=== PATIENT | female | born 1965 | race Caucasian/White ===

== ENCOUNTER → 2017-09-08 15:00 | Outpatient (CLI) | payer OTHER, SELFPAY ==
[2017-09-16 11:21] LABS: HPV APTIMA, High Risk Positive (Negative)
[2017-09-16 11:33] LABS: HPV Reflexed? YES, CHARGE PATIENT
== END ==
PROVIDERS: Visit Provider Obstetrics & Gynecology
DX: Z12.4 Encounter for screening for malignant neoplasm of cervix (principal)
CPT/HCPCS: 87624; 88175; G0145

== ENCOUNTER → 2017-09-28 18:36 | Outpatient (CLI) | payer OTHER, SELFPAY ==
--- NOTE | 2017-09-28 | IMM_PTH ---
PATIENT: KENDALL SMART LOC: [facility] U#:[id number] AGE/SX: 60/F ROOM: RE09/28/[address]: Dr. Asaf Le MD : 1965 BED: DIS: SPEC #: [id number] RECD: 09/30/17 10:37 STATUS: GUILLERMO HEMA #: [id number] ALY: 09/28/17 00:[address]: Asaf Le DEPT: IMMUNOHISTOCHEMISTRY RECD BY: Shayy Newby Tissues: A - Endocervical B - Uterine cervix, NOS Procedures: p16 (initial) KI-67 (add) PHYSICIAN & INSTITUTION [place] [id number] SPECIMEN INFORMATION: Tissue Source: A ? ECC, B ? Cervical biopsy, four quad Clinical Info: HGSIL Specimen Number: [id number] A & B CPT code: 04806 x2, 19384 x2 METHODOLOGY: Deparaffinized sections of prefer/formalin-fixed tissue or PAP/DQ stained slides are incubated with monoclonal/polyclonal antibodies/oligonucleotide probes. Localization is made via biotin free immunoperoxidase method. Appropriate controls are performed and reacted as expected. Results on target cell population are indicated in the following table: RESULTS: ANTIBODY / CLONE RESULT Block A P16 (E6H4) positive, block-like Ki-67 (30-9) positive, high Block B P16 (E6H4) positive, block-like Ki-67 (30-9) positive, high These tests were developed and their performance characteristics determined by [facility]. They may not have been cleared or approved by the U.S. Food and Drug Administration. The FDA has determined that such clearance or approval is not necessary. INTERPRETATION: A. ECC: Severe squamous dysplasia, COLBY III (HGSIL). B. Cervical, four-quad biopsy: Mild, moderate and severe squamous dysplasia (COLBY I-III). AM:gilberto 09/30/17
--- NOTE | 2017-09-28 14:45 | ECC_PTH ---
PATIENT: KENDALL SMART LOC: [facility] U#:[id number] AGE/SX: 60/F ROOM: RE09/28/[address]: Dr. Asaf Le MD : 1965 BED: DIS: SPEC #: [id number] RECD: 09/28/17 18:21 STATUS: GUILLERMO HEMA #: [id number] ALY: 09/28/17 14:[address]: Asaf Le DEPT: SURGICAL PATHOLOGY RECD BY: Preet Aguilera Tissues: A - Endocervical B - Endocervical Procedures: Surgery Specimen Level IV HEADER OPERATION: Colposcopy PRE-OP DIAGNOSIS: HGSIL N87.0 TISSUE SUBMITTED: A. ECC, B. Cervical biopsy four-quad MICROSCOPIC DIAGNOSIS A. Endocervix, curettings: Detached fragments of squamous mucosa with severe dysplasia, COLBY III. Strips of benign superficial endocervix and mucous. B. Cervix, four-quad biopsy: Mild, moderate and severe squamous dysplasia, COLBY I-III (HGSIL). AM:gilberto 09/30/17 COMMENT A & B. Results from immunohistochemistry ([id number]) for surrogate HPV marker (p16) will be reported separately. MICROSCOPIC DESCRIPTION Slides are reviewed. GROSS DESCRIPTION A - Received in fixative is one container labeled with the patient's name and designated ECC. The specimen consists of multiple fragments of hemorrhagic mucoid tissue that in aggregate measure 1 x 1 x 0.2 cm. The specimen is totally submitted in one cassette. B - Received in fixative is one container labeled with the patient's name and designated four-quadrant cervical biopsy. The specimen consists of multiple irregular fragments of light max soft tissue that in aggregate measure 1.5 x 0.5 x 0.1 cm. The specimen is totally submitted in one cassette. / SJ:gilberto 09/29/17 TC:0 CPT: 83475 x2
== END ==
PROVIDERS: Visit Provider Obstetrics & Gynecology
DX: N87.0 Mild cervical dysplasia (principal)
CPT/HCPCS: 88305; 88341; 88342

== ENCOUNTER 2018-08-02 08:46 | Day surgery (SDC) | payer OTHER, SELFPAY ==
--- NOTE | 2017-10-18 14:04 | PCM.HP.BLA ---
History and Physical Date of Admission: 10/19/17 Surgical History and Physical Sally Magana, a 52 year old female 5 0 1 0 5, presents for LEEP on 10/19/17. -- Severe Cervical Dysplasia -- Colposcopy Procedure for recent abnormal pap screening with HGSIL showed COLBY III. 52 y.o. G 5 P 5 smoker of 1/2 PPD (ATQ) with history of Irregular Menses and LMP of 09-15-17 lasting 4 days. Answered questions and consents signed. 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 MEDICATIONS HISTORY: ALLERGIES: No Known Allergies Infections - Chicken pox Illnesses - no serious past illnesses Accidents - None Hospitalizations - see surgery Review of Systems: GENERAL - Denies fever, or chills SKIN - Denies skin changes EYES - Denies visual changes EARS - Denies difficulty hearing NOSE - Denies nasal congestion or bleeding MOUTH - Denies sore throat or difficulty swallowing NECK - Denies pain or swelling RESPIRATORY - Denies shortness of breath or wheezing CARDIOVASCULAR - Denies palpitations or chest pain GASTROINTESTINAL - Denies nausea, vomiting, diarrhea, constipation GENITOURINARY - Denies dysuria, frequency of urination, incontinence of urine MUSCULOSKELETAL - Denies joint or muscle pain NEUROLOGICAL - Denies localized numbness or weakness PSYCHIATRIC - Denies depression or anxiety ENDOCRINE - Denies heat or cold intolerance, weight loss or gain HEMATO-IMMUNOLOGIC - Denies excesive bleeding with cuts SOCIAL HISTORY: Alcohol Use - RARELY Smoking - 1/2 pack/day--advised to quit Diet - no special diet Lifestyle - moderate stress lifestyle and Exercise - active work Seat Belt Use - always 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 cholecystectomy, 2008 2. 2010 (L) Wrist Surgery PHYSICAL EXAM BP- 130/74 Sitting, Right arm, regular cuff Weight- 182.91320 lbs Height- 64 inch BMI:31.31 CONSTITUTIONAL - NAD, well nourished, and well developed SKIN - No rash, lesions, or ulcers HEENT - Normocephalic, PERRLA, EOMI NECK - No nodes, no nuchal rigidity and thyroid normal size and texture LYMPH NODES - Palpation of lymph nodes in neck and groins within normal limits LUNGS - CTA x2 without wheezes, crackles or rales CARDIAC - Regular rate and rhythm without rubs, murmurs, or gallops BREAST - No dominant masses, no tenderness, no axillary adenopathy, no nipple discharge, no skin changes ABDOMEN - Without hepatosplenomegaly, distention, masses, rebound, or guarding; normal bowel sounds; no hernias EXTREMITIES - No edema or calf tenderness NEUROLOGICAL - Cranial nerves II-XII grossly intact PSYCHIATRIC - A and O to time, place, person, mood and affect External Genitial Vagina - non-tender without lesions Urethra/Urethral Meatus - non-tender Bladder - non-tender Vagina - vaginal davila are pink and moist without loss of rugae and no evidence of atropy Cervix - without cervical motion tenderness and has normal size and features without evident lesions Uterus - 5-6 cm in size, mobile and nontender Adnexa - clear without massess or tenderness ASSESSMENT/PLAN: Severe Cervical Dysplasia (COLBY III). Plan LEEP. Discussed RBAs and all questions answered.
--- NOTE | 2017-10-18 14:07 | HP.PCM_ITS ---
History and Physical Date of Admission: 10/19/17 Surgical History and Physical Sally Magana, a 52 year old female 5 0 1 0 5, presents for LEEP on . -- Severe Cervical Dysplasia -- Colposcopy Procedure for recent abnormal pap screening with HGSIL showed COLBY III. 52 y.o. G 5 P 5 smoker of 1/2 PPD (ATQ) with history of Irregular Menses and LMP of 09-15-17 lasting 4 days. Answered questions and consents signed. 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 MEDICATIONS HISTORY: ALLERGIES: No Known Allergies Infections - Chicken pox Illnesses - no serious past illnesses Accidents - None Hospitalizations - see surgery Review of Systems: GENERAL - Denies fever, or chills SKIN - Denies skin changes EYES - Denies visual changes EARS - Denies difficulty hearing NOSE - Denies nasal congestion or bleeding MOUTH - Denies sore throat or difficulty swallowing NECK - Denies pain or swelling RESPIRATORY - Denies shortness of breath or wheezing CARDIOVASCULAR - Denies palpitations or chest pain GASTROINTESTINAL - Denies nausea, vomiting, diarrhea, constipation GENITOURINARY - Denies dysuria, frequency of urination, incontinence of urine MUSCULOSKELETAL - Denies joint or muscle pain NEUROLOGICAL - Denies localized numbness or weakness PSYCHIATRIC - Denies depression or anxiety ENDOCRINE - Denies heat or cold intolerance, weight loss or gain HEMATO-IMMUNOLOGIC - Denies excesive bleeding with cuts SOCIAL HISTORY: Alcohol Use - RARELY Smoking - 1/2 pack/day--advised to quit Diet - no special diet Lifestyle - moderate stress lifestyle and Exercise - active work Seat Belt Use - always 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 cholecystectomy, 2008 2. 2010 (L) Wrist Surgery PHYSICAL EXAM BP- 130/74 Sitting, Right arm, regular cuff Weight- 182.63811 lbs Height- 64 inch BMI:31.31 CONSTITUTIONAL - NAD, well nourished, and well developed SKIN - No rash, lesions, or ulcers HEENT - Normocephalic, PERRLA, EOMI NECK - No nodes, no nuchal rigidity and thyroid normal size and texture LYMPH NODES - Palpation of lymph nodes in neck and groins within normal limits LUNGS - CTA x2 without wheezes, crackles or rales CARDIAC - Regular rate and rhythm without rubs, murmurs, or gallops BREAST - No dominant masses, no tenderness, no axillary adenopathy, no nipple discharge, no skin changes ABDOMEN - Without hepatosplenomegaly, distention, masses, rebound, or guarding; normal bowel sounds; no hernias EXTREMITIES - No edema or calf tenderness NEUROLOGICAL - Cranial nerves II-XII grossly intact PSYCHIATRIC - A and O to time, place, person, mood and affect External Genitial Vagina - non-tender without lesions Urethra/Urethral Meatus - non-tender Bladder - non-tender Vagina - vaginal davila are pink and moist without loss of rugae and no evidence of atropy Cervix - without cervical motion tenderness and has normal size and features without evident lesions Uterus - 5-6 cm in size, mobile and nontender Adnexa - clear without massess or tenderness ASSESSMENT/PLAN: Severe Cervical Dysplasia (COLBY III). Plan LEEP. Discussed RBAs and all questions answered.
[2018-07-12 16:18] LABS: Hematocrit 38.5 % (37-47); Mean Corp Hgb Conc 33.8 g/gl (32-36); Mean Corpuscular Hgb 33.8 pg (27.0-32.0); Mean Platelet Vol. 10.2 fl (6.2-12.0); Platelet Count 244 K/mm3 (150-450); RBC Distribution Width CV 13.5 % (11.6-14.6); RBC Distribution Width SD 48.7 fl (35.1-43.9); Red Blood Count 3.85 M/mm3 (4.2-5.4); White Blood Count 7.4 K/mm3 (4.4-11.0)
[2018-07-12 16:35] LABS: Scan Indicated on CBC? Y/N NO
[2018-07-12 16:38] LABS: Pregnancy, Serum, hCG Quali. NEGATIVE Negative (0-9 Nonpreg)
[2018-07-12 16:52] LABS: International Normalized Ratio 1.1
[2018-07-12 16:53] LABS: Partial Thromboplast Time 30.9 Seconds (24.1-36.2)
--- NOTE | 2018-08-01 19:30 | HP.PCM_ITS ---
History and Physical Date of Admission: 08/02/18 Surgical History and Physical Sally Magana, a 53 year old female 5 0 1 0 5, presents for LEEP on August 02, 2018 at 7:30. -- Severe Cervical Dysplasia -- Recent colposcopy procedure for recent abnormal pap screening with HGSIL showd COLBY III. 53 y.o. G 6 P 5 smoker of 1/2 PPD (ATQ). MEDICATIONS HISTORY: Patient is also takin. No Meds ALLERGIES: No Known Allergies Infections - Chicken pox Illnesses - no serious past illnesses Accidents - None Hospitalizations - see surgery Review of Systems: GENERAL - Denies fever, or chills SKIN - Denies skin changes EYES - Denies visual changes EARS - Denies difficulty hearing NOSE - Denies nasal congestion or bleeding MOUTH - Denies sore throat or difficulty swallowing NECK - Denies pain or swelling RESPIRATORY - Denies shortness of breath or wheezing CARDIOVASCULAR - Denies palpitations or chest pain GASTROINTESTINAL - Denies nausea, vomiting, diarrhea, constipation GENITOURINARY - Denies dysuria, frequency of urination, incontinence of urine MUSCULOSKELETAL - Denies joint or muscle pain NEUROLOGICAL - Denies localized numbness or weakness PSYCHIATRIC - Denies depression or anxiety ENDOCRINE - Denies heat or cold intolerance, weight loss or gain HEMATO-IMMUNOLOGIC - Denies excesive bleeding with cuts SOCIAL HISTORY: Alcohol Use - RARELY Smoking - 1/2 pack/day--advised to quit Diet - no special diet Lifestyle - moderate stress lifestyle and Exercise - active work Seat Belt Use - always 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 - [employer] 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 cholecystectomy, 2008 2. 2010 (L) Wrist Surgery PHYSICAL EXAM BP- 132/70 Sitting, Right arm, regular cuff Weight- 149.0 lbs Height- 64 inch BMI:25.63 CONSTITUTIONAL - NAD, well nourished, and well developed SKIN - No rash, lesions, or ulcers HEENT - Normocephalic, PERRLA, EOMI NECK - No nodes, no nuchal rigidity and thyroid normal size and texture LYMPH NODES - Palpation of lymph nodes in neck and groins within normal limits LUNGS - CTA x2 without wheezes, crackles or rales CARDIAC - Regular rate and rhythm without rubs, murmurs, or gallops BREAST - No dominant masses, no tenderness, no axillary adenopathy, no nipple discharge, no skin changes ABDOMEN - Without hepatosplenomegaly, distention, masses, rebound, or guarding; normal bowel sounds; no hernias EXTREMITIES - No edema or calf tenderness NEUROLOGICAL - Cranial nerves II-XII grossly intact PSYCHIATRIC - A and O to time, place, person, mood and affect External Genitial Vagina - non-tender without lesions Urethra/Urethral Meatus - non-tender Bladder - non-tender Vagina - vaginal davila are pink and moist without loss of rugae and no evidence of atropy Cervix - without cervical motion tenderness and has normal size and features without evident lesions Uterus - 5-6 cm in size, mobile and nontender Adnexa - clear without masses or tenderness ASSESSMENT/PLAN: Severe Cervical Dysplasia. Plan LEEP. Discussed RBAs and all questions answered.
--- NOTE | 2018-08-02 | CER_PTH ---
PATIENT: KENDALL SMART LOC: [facility] [place] U#:[id number] AGE/SX: 53/F ROOM: RE08/02/[address]: Dr. sAaf Le MD : 1965 BED: DIS: 08/02/2018 SPEC #: [id number] RECD: 08/02/18 11:39 STATUS: GUILLERMO HEMA #: [id number] ALY: 08/02/18 00:[address]: Asaf Le DEPT: SURGICAL PATHOLOGY RECD BY: James Cid ENTERED: 08/02/18 11:40 SP TYPE: CERV OTHR DR: Dr. Jean Chirinos MD Tissues: A - Uterine cervix, NOS B - Endocervical C - Endocervical Procedures: Surgery Specimen Level IV Surgery Specimen Level V HEADER OPERATION: LEEP cone PRE-OP DIAGNOSIS: Severe cervical dysplasia TISSUE SUBMITTED: A - Ectocervix, B - Endocervix, C - Endocervical curettings MICROSCOPIC DIAGNOSIS A. Ectocervix, LEEP conization: Focal moderate to severe squamous dysplasia, COLBY II-III (HGSL). Changes consistent with HPV cytopathic effect. Chronic inflammation. See comment. B. Endocervix, LEEP conization: Squamous metaplasia and chronic inflammation. No evidence of dysplasia. C. Endocervix, curettings (cell block): Rare detached endocervical cells. No evidence of dysplasia. AM:gilberto 08/03/18 COMMENT A. The dysplasia extends to one peripheral margin of excision. Clinical correlation is suggested. Results from immunohistochemistry ([id number]) for surrogate HPV marker (p16) will be reported separately. MICROSCOPIC DESCRIPTION Slides are reviewed. GROSS DESCRIPTION A - Received in fixative is one container labeled with the patient's name and designated ectocervix. The specimen consists of an irregular fragment of glistening max mucosa measuring 1.6 x 1.5 x 0.2 cm. No mass lesions are identified. The specimen is inked, serially sectioned and totally submitted in two cassettes. B - Received in fixative is one container labeled with the patient's name and designated endocervix. The specimen consists of an irregular fragment of light max soft tissue measuring 1.3 x 0.5 x 0.2 cm. The specimen is inked, bisected and totally submitted in one cassette. C - Received in fixative is one container labeled with the patient's name and designated endocervical curettings. The specimen consists of white-max mucoid material aggregating to 0.5 x 0.2 x <0.1 cm. The specimen is submitted for cell block preparation. / AM:gilberto 08/02/18 TC:0 CPT: 74372, 77189 x2
--- NOTE | 2018-08-02 | IMM_PTH ---
PATIENT: KENDALL SMART LOC: [facility] [place] U#:[id number] AGE/SX: 53/F ROOM: RE08/02/[address]: Dr. Asaf Le MD : 1965 BED: DIS: 08/02/2018 SPEC #: [id number] RECD: 08/03/18 13:45 STATUS: GUILLERMO REQ #: [id number] ALY: 08/02/18 00:[address]: Asaf Le DEPT: IMMUNOHISTOCHEMISTRY RECD BY: Shayy Newby ENTERED: 08/03/18 13:46 SP TYPE: IMMUNO OTHR DR: Dr. Jean Chirinos MD Tissues: A - Uterine cervix, NOS Procedures: p16 (initial) KI-67 (add) PHYSICIAN & INSTITUTION [place] [address] SPECIMEN INFORMATION: Tissue Source: A - Ectocervix Clinical Info: Severe cervical dysplasia Specimen Number: [id number] CPT code: 52162, 84499 METHODOLOGY: Deparaffinized sections of prefer/formalin-fixed tissue or PAP/DQ stained slides are incubated with monoclonal/polyclonal antibodies/oligonucleotide probes. Localization is made via biotin free immunoperoxidase method. Appropriate controls are performed and reacted as expected. Results on target cell population are indicated in the following table: RESULTS: ANTIBODY / CLONE RESULT Block A2 P16 (E6H4) positive, block-like Ki-67 (30-9) positive, moderate These tests were developed and their performance characteristics determined by [facility]. They may not have been cleared or approved by the U.S. Food and Drug Administration. The FDA has determined that such clearance or approval is not necessary. INTERPRETATION: A. Ectocervix, LEEP conization: Severe squamous dysplasia, CIN3 (HSIL) with extension to one peripheral margin. AM:curtis 08/04/18
[2018-08-02 09:04] LABS: Internal QC Validated? YES +Cl - CLEAR BKGD; Pregnancy, Urine Negative Negative
[2018-08-02 09:12] VITALS: BP 131/80; PULSE 63; RESP 16; TEMP 37.2; O2SAT 99; BMI 25.1
--- NOTE | 2018-08-02 10:24 | PCM.OPRPT ---
Report of Operation Date of Procedure: 08/02/18 Pre-Operative Diagnosis: Severe Cervical Dysplasia Post-Operative Diagnosis: Severe Cervical Dysplasia Surgery/Procedure Performed:: LEEP of Cervix Description of Surgical Findings:: Normal-appearing cervix. Cervix prolapsed to within 2-3 cm of the vaginal introitus which would make vaginal hysterectomy possible if this were ever needed. Type of Anesthesia:: Local MAC Anesthesiologist: Lawrence Hamlin Specimen's removed: Ectocervix, endocervix, ECC after LEEP Drains: None Estimated Blood Loss (mL): 50 cc Fluids Replaced: Crystalloid Description of Procedure: Surgeon: Asaf Le MD, FACOG Indication: 53 year patient who was recently noted to have severe cervical dysplasia at time of cervical biopsy. Given this, the patient desires that we proceed with the above surgery. She has been counseled regarding the risk, indications, and alternatives of this procedure and desire that we proceed. All questions answered. Procedure: Patient taken to the operating room where she was given IV sedation and placed in the dorsal lithotomy position and prepped and draped in the usual sterile fashion. Cervix was visualized and painted with Lugol's solution. The ectocervix was then removed to a depth of 5 mm on a setting of 50 W cutting and endocervix removed to a depth of 7 mm on a setting of 50 W cutting. Endocervical curettings were obtained. Base of the cone was then cauterized a setting of 50 W coagulation and Monsel's was painted across the LEEP base. Pt tolerated the procedure well and was taken to the recovery room in satisfactory condition. Sponge, instruments and needle counts were all correct. There were no apparent complications of the surgery. To Pathology: Ectocervix, endocervix, ECC after LEEP Grafts/Implants Used: None - Complications None - Admit VTE Documentation VTE Present on Admission: Yes VTE Mechan Device Prophylaxis: SCD's VTE Pharm Prophylaxis ordered?: No Reason prophylaxis not ordered:: Treatment Not Indicated
--- NOTE | 2018-08-02 10:31 | DCINST_ITS ---
Discharge Diet: No Restrictions Discharge Activity: Return to Normal Activity, May not drive while taking narcotic pain medications. May resume sexual activity in: 4 weeks - nothing in the vagina for 4 weeks. Call your doctor if you observe: Fever of 101 or Higher, Inability to urinate, Inability to have a bowel movement, Using more than one pad per hour Allergies/Adverse Reactions: Allergies No Known Allergies Allergy (Verified 07/12/18 12:56) Medications to take at Discharge NK 07/12/18 Primary Care Physician: Jean Chirinos [Primary Care Provider] - Test Results: Test results from this visit will be discussed in further detail at your follow- up appointment, if applicable. Please Follow Up With: Asaf Le MD When: 3-4 weeks
[2018-08-02] MEDS: FERRIC SUBSULFATE 8 GM SOLN (10:55)
[2018-08-02 11:05] VITALS: BP 104/62; BP 131/80; PULSE 63; RESP 16; TEMP 36.6; O2SAT 95
[2018-08-02 11:10] VITALS: BP 131/80; BP 93/66; PULSE 70; RESP 16; O2SAT 98
[2018-08-02 11:15] VITALS: BP 115/69; BP 131/80; PULSE 64; RESP 16; O2SAT 100
[2018-08-02 11:16] VITALS: BP 121/76; BP 131/80; PULSE 67; RESP 18; TEMP 36.4; O2SAT 100
[2018-08-02 11:50] VITALS: BP 131/80
== END 2018-08-02 12:13 | disposition home or self-care (01) ==
LOC: SDC 08:49 → AC 08:49
PROVIDERS: Anesthesiology; Family Provider Family Medicine; PCP Family Medicine; Referring Provider Obstetrics & Gynecology; Visit Provider Obstetrics & Gynecology
PROC: 0UBC7ZZ Excision of Cervix, Via Natural or Artificial Opening (ICD-10-PCS; CPT 57522; principal; 2018-08-02 10:00)
DX: D06.9 Carcinoma in situ of cervix, unspecified (principal); N72 Inflammatory disease of cervix uteri; F17.200 Nicotine dependence, unspecified, uncomplicated
CPT/HCPCS: 00940; 57522; 36415; 81025; 84703; 85027; 85610; 85730; 86850; 86900; 88305; 88307; 88341; 88342; J7120; J2405

== ENCOUNTER → 2020-02-16 | Outpatient (CLI) | payer OTHER, SELFPAY ==
[2020-02-22 20:45] LABS: HPV APTIMA, High Risk Negative (Negative)
[2020-02-22 20:48] LABS: HPV Reflexed? YES, CHARGE PATIENT
== END | disposition home or self-care (01) ==
LOC: WOBLAB 13:51
PROVIDERS: PCP Family Medicine; Visit Provider Obstetrics & Gynecology
DX: Z12.4 Encounter for screening for malignant neoplasm of cervix (principal)
CPT/HCPCS: 87624; 88175; G0145